=== PATIENT | male | born 1965 ===

== ENCOUNTER 2018-12-24 13:18 | Outpatient (CLI) | payer OTHER ==
--- NOTE | 2018-12-24 14:17 | XRAY Report ---
Reason: COUGH Procedure Date: 12/24/2018 Accession Number: [id number] / [id number] Procedure: FL - Modified Barium Swallow W/SP CPT Code: FULL RESULT: EXAM: MODIFIED BARIUM SWALLOW EXAM DATE: 12/24/2018 01:54 PM. CLINICAL HISTORY: Cough. COMPARISON: None. TECHNIQUE: Under the direction of speech pathology, patient swallowed various consistencies of barium under lateral fluoroscopic observation of the neck. Fluoroscopy Time: 54 seconds. Number of Images: 41. FINDINGS: Swallowing Mechanism: Normal oral phase and swallowing reflex. Airway Protection: Normal epiglottic motion. No episodes of tracheal penetration or aspiration with all consistencies of barium. Pharynx: Normal. No significant vallecular or piriform sinus contrast pooling. Other: None. IMPRESSION: Normal modified barium swallow. No aspiration identified. RADIA
== END 2018-12-24 13:19 | disposition home or self-care (01) ==
LOC: DI 13:18
PROVIDERS: ATTEND Internal Medicine
DX: R05 Cough (principal)
CPT/HCPCS: 74230

== ENCOUNTER 2021-02-03 22:06 | Emergency (ER) | payer OTHER ==
[2021-02-03] MEDS ORDERED: FAMOTIDINE 20 MG TABLET PO STA (22:24)
[2021-02-03] MEDS ORDERED: diphenhydrAMINE INJ 50 MG/ML VIAL IM STA (22:24)
[2021-02-03] MEDS ORDERED: DEXAMETHASONE 10 MG/ML VIAL PO STA (22:24)
[2021-02-03] MEDS ORDERED: CHERRY SYRUP 10 ML UDC PO ONE (22:24)
--- NOTE | 2021-02-03 22:27 | ED Physician Documentation ---
PD HPI SKIN - Stated complaint Stated Complaint: BODILY ALLERGY REACTION - Chief complaint Chief Complaint: Wound - History obtained from History obtained from: Patient - Additional information Additional information: 55-year-old man with no known allergies presents with rash starting on his left wrist around 5 PM while at work, spreading to All 4 extremities, chest, back, and neck over the course of several hours. Patient endorsed associated itching but no chest pain, shortness of breath, wheezing, throat tightness, lightheadedness, headache, nausea or vision changes. He did take loratadine 20 mg at 8:45 PM but no other medications. Review of Systems Ten Systems: 10 systems reviewed and negative Constitutional: denies: Fever, Chills Eyes: denies: Decreased vision, Irritation Throat: reports: Other (no throat tightness) Cardiac: denies: Chest pain / pressure, Palpitations Respiratory: denies: Dyspnea, Cough GI: denies: Abdominal Pain, Nausea Skin: reports: Rash Musculoskeletal: denies: Back pain Neurologic: denies: Generalized weakness PD PAST MEDICAL HISTORY - Present Medications Home Medications: Ambulatory Orders Medication Instructions Recorded Confirmed Loratadine 10 mg PO DAILY PRN 02/03/21 02/03/21 - Allergies Allergies/Adverse Reactions: Allergies Allergy/AdvReac Type Severity Reaction Status Date / Time No Known Drug Allergies Allergy Verified 02/03/21 22:15 PD ED PE NORMAL - Vitals Vital signs reviewed: Yes - General General: Alert and oriented X 3, No acute distress, Well developed/nourished - HEENT HEENT: Atraumatic, PERRL, EOMI, Moist mucous membranes, Pharynx benign - Neck Neck: Supple, no meningeal sign - Cardiac Cardiac: RRR - Respiratory Respiratory: No respiratory distress, Clear bilaterally - Abdomen Abdomen: Non tender, Non distended - Derm Derm: Other (raised erythematous rash to all 4 extremities, back, trunk, and neck) - Extremities Extremities: No deformity, No edema - Neuro Neuro: Alert and oriented X 3 - Psych Psych: Normal mood, Normal affect Results - Vitals Vitals: Vital Signs - 24 hr 02/03/21 02/03/21 02/03/21 22:11 22:20 22:36 Temperature 36.8 C Heart Rate 70 58 L Respiratory 16 16 16 Rate Blood Pressure 148/70 H 136/86 H O2 Saturation 100 98 02/03/21 02/03/21 22:46 23:00 Temperature Heart Rate 57 L Respiratory 16 15 Rate Blood Pressure O2 Saturation 96 Oxygen O2 Source Room air PD MEDICAL DECISION MAKING - ED course ED course: 55-year-old man presents with urticarial full body rash, sparing the face and airways. No other system involvement. He has not yet taken benadryl therefore will administer along with other antiallergy meds. Upon reevaluation the itching has completely resolved, rash resolving, plan to dc home with return precautions. plan o/p referral to allergy and immunology. Departure - Departure Disposition: Home, Self Care Clinical Impression: Hives Condition: Good Instructions: ED Urticaria Follow-Up: Louie Edwards MD [Physician No Access] - Comments: You were seen in the emergency department for hives and allergic skin reaction. We gave you 50mg of benadryl as a shot, as well as oral pepcid and decadron. The decadron is a steroid that will help prevent allergic flareups over the next 72 hours. [place] to allergy and immunology For further testing. Return to the emergency department if you experience any new or worsening symptoms or have other concerns. If this happens again, take 2 Benadryl (50mg diphenhydramine) and if the symptoms do not improve or get worse then you should see a doctor right away.
[2021-02-04] VITALS: BP 123/71
== END 2021-02-03 23:59 | disposition home or self-care (01) ==
LOC: ED 22:06
DX: L50.0 Allergic urticaria (principal)
CPT/HCPCS: 96372; 99283; 99284; A9270; J1200